=== PATIENT | male | born 1955 | race Hispanic/Latino ===

== ENCOUNTER → 2019-04-29 | Outpatient (CLI) | payer OTHER ==
[~2019-04-29] MED LIST: AMBIEN10 MG; ASPIRIN EC81 MG PO; BRILINTA90 MG; CIALIS20 MG PO; FLOMAX0.4 MG PO; METOPROLOL 12.5 MG; NITROGLYCERIN0.4 MG PO; SUPREP BOWEL P354 ML; TRAZODONE HCL50 MG PO; ZOCOR10 MG; ZOLOFT50 MG PO; [UNRECOGNIZED DRUG - OTHER]
--- NOTE | 2019-04-29 17:33 | Diagnostic Imaging Report ---
Exam: KUB - 2 views Indication: Abdominal distention Comparison: <None.> Findings: Nonobstructive bowel gas pattern. No free air. Radiopaque structures in the right upper quadrant, compatible with gallstones. No radiographically apparent renal calculi. No acute osseous injury. Phleboliths in the pelvis. Impression: Nonobstructive bowel gas pattern. No free air. Cholelithiasis. Signed by: Scott Menjivar MD on 04/29/2019 5:30 PM
== END ==
LOC: RAD 16:19
PROVIDERS: ATTEND Internal Medicine
DX: R14.0 Abdominal distension (gaseous) (principal)
CPT/HCPCS: 74019

== ENCOUNTER 2024-06-20 22:26 | Emergency (ER) | payer MEDICARE ==
[~2024-06-20] VITALS: Ht 170.2 cm; Wt 90.7 kg
[~2024-06-20 22:26] MED LIST changes: +INDERAL10 MG PO
[2024-06-20 22:43] VITALS: RESP 17; TEMP 98.9
[2024-06-20 23:28] LABS: BASOPHILS # (AUTO) 0.1 (0.0-0.1); BASOPHILS % 0.7 % (0.0-1.0); EOSINOPHILS # (AUTO) 0.3 (0.0-0.4); EOSINOPHILS % 4.6 % (0.0-6.0); HEMATOCRIT 30.8 % (38.2-49.6); HEMOGLOBIN 10.2 g/dL (14.0-18.0); LYMPHOCYTES # (AUTO) 0.8 (1.0-3.2); LYMPHOCYTES % 11.3 % (18.0-39.1); MEAN CORPUSCULAR HEMOGLOBIN 30.9 pg (28-32); MEAN CORPUSCULAR HGB CONC 33.1 g/dL (31-35); MEAN CORPUSCULAR VOLUME 93.3 fL (81-99); MONOCYTES # (AUTO) 0.8 (0.2-0.8); NEUTROPHILS # (AUTO) 5.1 (2.1-6.9); PLATELET COUNT 280 x10e3/uL (140-360); RED CELL DISTRIBUTION WIDTH 14.1 % (11.7-14.4); WHITE BLOOD COUNT 7.11 x10e3/uL (4.8-10.8)
[2024-06-20 23:49] LABS: ALBUMIN 2.7 g/dL (3.5-5.0); ALBUMIN/GLOBULIN RATIO 0.6 (0.8-2.0); ANION GAP 12.9 mmol/L (8-16); BILIRUBIN,TOTAL 0.3 mg/dL (0.2-1.2); CALCIUM 8.2 mg/dL (8.4-10.2); CREATININE, SERUM 1.17 mg/dL (0.72-1.25); POTASSIUM 3.9 mmol/L (3.5-5.1); TOTAL PROTEIN 7.1 g/dL (6.5-8.1)
[2024-06-21] VITALS: PULSE 87
[2024-06-21 00:15] LABS: CREATINE KINASE 104 IU/L (30-200); LIPASE 69 U/L (8-78)
[2024-06-21 00:16] LABS: ETHANOL < 10.0 mg/dL (0.0-10.0)
[2024-06-21] MEDS ORDERED: ENULOSE10 GM/15 M PO (00:32)
[2024-06-21 01:02] VITALS: BP 154/85; O2SAT 100
== END 2024-06-21 00:53 | disposition home or self-care (01) ==
LOC: ER 22:52 → MERGE 22:52 → ER 06-21 00:53
DX: R25.2 Cramp and spasm (principal); E83.51 Hypocalcemia; K59.00 Constipation, unspecified; I10 Essential (primary) hypertension; K76.9 Liver disease, unspecified; I25.2 Old myocardial infarction; F17.210 Nicotine dependence, cigarettes, uncomplicated
CPT/HCPCS: 36415; 74019; 80053; 80320; 82550; 83690; 85025; 99284

== ENCOUNTER 2024-07-10 08:03 | Emergency (ER) | payer MEDICARE ==
[~2024-07-10 08:03] MED LIST changes: +ENULOSE10 GM/15 M PO
[2024-07-10] MEDS ORDERED: TETANUS/DIPHTHERIA TOX ADULT 0.5 ML SYR ONE (17:29)
== END 2024-07-10 08:40 | disposition short-term general hospital (02) ==
LOC: ER 08:34
DX: K59.00 Constipation, unspecified (principal)
CPT/HCPCS: 90714

== ENCOUNTER 2024-08-05 16:50 | Emergency (ER) | payer MEDICARE ==
[~2024-08-05] VITALS: Ht 170.2 cm; Wt 72.6 kg
[2024-08-05 17:00] VITALS: TEMP 98.5
[2024-08-05 18:12] LABS: BASOPHILS % 0.4 % (0.0-1.0); EOSINOPHILS # (AUTO) 0.1 (0.0-0.4); EOSINOPHILS % 1.2 % (0.0-6.0); HEMATOCRIT 34.1 % (38.2-49.6); HEMOGLOBIN 11.3 g/dL (14.0-18.0); LYMPHOCYTES # (AUTO) 0.7 (1.0-3.2); MEAN CORPUSCULAR HEMOGLOBIN 31.3 pg (28-32); MEAN CORPUSCULAR HGB CONC 33.1 g/dL (31-35); MEAN CORPUSCULAR VOLUME 94.5 fL (81-99); MONOCYTES % 10.5 % (4.4-11.3); NEUTROPHILS # (AUTO) 7.7 (2.1-6.9); NEUTROPHILS % 80.3 % (38.7-80.0); PLATELET COUNT 371 x10e3/uL (140-360); RED BLOOD COUNT 3.61 x10e6/uL (4.3-5.7); RED CELL DISTRIBUTION WIDTH 13.9 % (11.7-14.4); WHITE BLOOD COUNT 9.64 x10e3/uL (4.8-10.8)
[2024-08-05 18:30] LABS: ALBUMIN 2.3 g/dL (3.5-5.0); ALBUMIN/GLOBULIN RATIO 0.5 (0.8-2.0); ANION GAP 14.3 mmol/L (8-16); BILIRUBIN,TOTAL 0.4 mg/dL (0.2-1.2); CALCIUM 8.5 mg/dL (8.4-10.2); CREATININE, SERUM 1.55 mg/dL (0.72-1.25); POTASSIUM 3.3 mmol/L (3.5-5.1)
[2024-08-05 18:35] LABS: PROTHROMBIN TIME 14.1 seconds (11.9-14.5)
[2024-08-05 18:36] LABS: PARTIAL THROMBOPLASTIN TIME 29.2 seconds (23.8-35.5)
[2024-08-05 18:43] LABS: TROPONIN I 0.057 ng/mL (0-0.300)
[2024-08-05] MEDS ORDERED: IOPAMIDOL 370 MG/ML 100 ML INFUS..BTL INJ ONE (18:52)
[2024-08-05 20:45] VITALS: PULSE 100; RESP 17; O2SAT 99
== END 2024-08-05 20:50 | disposition home or self-care (01) ==
LOC: ER 17:39
DX: K70.31 Alcoholic cirrhosis of liver with ascites (principal); E27.9 Disorder of adrenal gland, unspecified; I10 Essential (primary) hypertension; I25.2 Old myocardial infarction
CPT/HCPCS: 36415; 71045; 74177; 80053; 83690; 84484; 85025; 85610; 85730; 93005; 99284; Q9967

== ENCOUNTER → 2024-08-25 | Outpatient (REF) | payer MEDICARE ==
[~2024-08-25] MED LIST changes: +ALBUMIN 25% 12.5GM 50ML 200 ML IV ONE
== END ==
LOC: US 08:02
PROVIDERS: ATTEND Nurse Practitioner
DX: K70.31 Alcoholic cirrhosis of liver with ascites (principal)
CPT/HCPCS: 49083; 76700

== ENCOUNTER 2024-09-02 04:47 | Emergency (ER) | payer MEDICARE ==
[~2024-09-02] VITALS: Ht 170.2 cm; Wt 72.6 kg
[~2024-09-02 04:47] MED LIST changes: -ALBUMIN 25% 12.5GM 50ML 200 ML IV ONE
[2024-09-02 04:48] VITALS: TEMP 98
[2024-09-02 05:28] LABS: BASOPHILS % 0.4 % (0.0-1.0); EOSINOPHILS % 0.8 % (0.0-6.0); LYMPHOCYTES % 5.6 % (18.0-39.1); MONOCYTES % 12.0 % (4.4-11.3); NEUTROPHILS % 80.3 % (38.7-80.0); RED CELL DISTRIBUTION WIDTH 14.0 % (11.7-14.4)
[2024-09-02 05:35] LABS: INR 1.0
[2024-09-02 05:44] LABS: EST GLOMERULAR FILTRATION RATE 38.0 ML/MIN (>=60)
[2024-09-02 06:24] VITALS: PULSE 96; RESP 19
[2024-09-02] MEDS ORDERED: ALBUMIN 25% 12.5GM 50ML 200 ML IV ONE (08:03)
[2024-09-02 09:04] VITALS: BP 131/94; PULSE 95; RESP 17; TEMP 98.1; O2SAT 100
== END 2024-09-02 09:06 | disposition home or self-care (01) ==
LOC: ER 05:22
DX: K70.31 Alcoholic cirrhosis of liver with ascites (principal); B19.20 Unspecified viral hepatitis C without hepatic coma; I10 Essential (primary) hypertension; I25.2 Old myocardial infarction; F10.10 Alcohol abuse, uncomplicated; F17.210 Nicotine dependence, cigarettes, uncomplicated; R06.02 Shortness of breath
CPT/HCPCS: 36415; 49083; 71045; 74470; 80053; 85025; 85610; 85730; 99284; C1729

== ENCOUNTER → 2024-09-10 | Outpatient (REF) | payer MEDICARE ==
[~2024-09-10] MED LIST changes: +ALBUMIN 25% 12.5GM 50ML 300 ML IV ONE
== END ==
LOC: US 08:20
PROVIDERS: ATTEND Nurse Practitioner
DX: K70.31 Alcoholic cirrhosis of liver with ascites (principal)
CPT/HCPCS: 49083

== ENCOUNTER → 2024-09-17 | Outpatient (REF) | payer MEDICARE ==
[~2024-09-17] MED LIST changes: -ALBUMIN 25% 12.5GM 50ML 300 ML IV ONE
[2024-09-17 13:19] LABS: BODY FLUID APPEARANCE TURBID; BODY FLUID TYPE PERITONEAL
[2024-09-17 19:05] LABS: WBC,BODY FLUID 161 cells/uL
[2024-09-17 21:30] LABS: LYMPHOCYTES,BODY FLUID 12 %; MONO/MACROPHG,BODY FLUID 80 %; NEUTROPHILS,BODY FLUID 8 %; TOTAL CELLS COUNTED (DIFF) 100
== END ==
LOC: US 08:43
PROVIDERS: ATTEND Nurse Practitioner
DX: K70.31 Alcoholic cirrhosis of liver with ascites (principal)
CPT/HCPCS: 36415; 49083; 82040; 84157; 87070; 87205; 89051